=== PATIENT | female | born 1950 | race Hispanic/Latino ===

== ENCOUNTER 2017-07-20 06:05 | Inpatient (IN) | payer MEDICARE ==
[2017-07-13 09:06] VITALS: BMI 22.4
[2017-07-20] MEDS ORDERED: ceFAZolin IV 2 gm in Dextrose 2 GM/50 ML BAG IVPB ONE (07:34)
[2017-07-20] MEDS ORDERED: Bupivacaine-Epi 0.5%-1:200,000 PF Inj IJ ONE (07:39)
[2017-07-20] MEDS ORDERED: Propofol 10 mg/ml Inj (20 ML) ONE (08:05)
[2017-07-20] MEDS ORDERED: Midazolam 2 MG/2 ML VIAL ONE (08:05)
[2017-07-20] MEDS ORDERED: Rocuronium 10 mg/ml (5 ml) ONE (08:05)
[2017-07-20] MEDS ORDERED: Lidocaine Hydrochloride 5 ML INJ ONE (08:05)
[2017-07-20] MEDS ORDERED: Phenylephrine 10 mg/ml Inj ONE (10:14)
[2017-07-20] MEDS ORDERED: ePHEDrine 50 mg/ml Inj ONE (10:14)
[2017-07-20] MEDS ORDERED: Neostigmine Methylsulfate 3mg/3ml Syringe IV ONE (12:02)
[2017-07-20] MEDS ORDERED: Clindamycin 2% Vaginal Cream(40 gm) ONE (12:33)
[2017-07-20] MEDS ORDERED: Lactated Ringer's 1,000 ML IV SCH (13:15)
[2017-07-20] MEDS: HYDROmorphone 0.5 mg/0.5 ml ISec IVP PRN ×3 (13:20→14:06)
--- NOTE | 2017-07-20 13:38 | PCM.SURG1 ---
Surgeon's Initial Post Op Note - Surgeon's Notes Surgeon: Dalton Espinal MD Boiler Technician: Kristie PANIAGUA Type of Anesthesia: General Endo, Local Pre-Operative Diagnosis: Complete procedentia, complete uterine prolapse. Cystocele. Ractocele. Urinary incontinence. chronic pelvic pain Operative Findings: Stage IV uterine prolapse. Stage IV cystocele rectocele. normal bladder and ureters anatomy. extensive peritoneal adhesions Post-Operative Diagnosis: Complete procedentia, complete uterine prolapse. Cystocele. Ractocele. Urinary incontinence. chronic pelvic pain. Extensive adhesions peritoneal and bowel Operation Performed: robotic hysterectomy BSO. Sacrocolpopexy. lysis of adhesions. Cystosocpy. canulation of ureters stents ICYGREEN Specimen/Specimens Removed: uterus, cervix tubges and ovaries Estimated Blood Loss: EBL {In ML}: 20 Drains Used: No Drains Post-Op Condition: Good Date of Surgery/Procedure: 07/20/17 Time of Surgery/Procedure: 13:39
[2017-07-20] MEDS ORDERED: Morphine 4 MG/ML VIAL IVP PRN (13:39)
[2017-07-20] MEDS ORDERED: Sodium Chloride 0.9% 1,000 ML IV SCH (13:45)
[2017-07-20] MEDS ORDERED: ceFAZolin IV 2 gm in Dextrose 2 GM/50 ML BAG IVPB SCH (14:45)
[2017-07-20 16:44] VITALS: O2SAT 98
[2017-07-21 00:18] VITALS: BP 131/77
[2017-07-21] MEDS: ceFAZolin IV 2 gm in Dextrose 2 GM/50 ML BAG IVPB SCH ×2 (02:03→10:56)
[2017-07-21] MEDS: Oxycodone/Acetaminophen 5/325 mg Tab PO PRN ×2 (06:25→18:46)
[2017-07-21 08:01] LABS: HEMOGLOBIN 12.8 g/dL (11.0-16.0); MEAN CELL VOLUME 84.9 fL (81.0-99.0); MEAN CORPUSCULAR HEMOGLOBIN 29.2 pg (27.0-31.0); MEAN CORPUSCULAR HGB CONC 34.4 g/dL (33.0-37.0); MEAN PLATELET VOLUME 9.3 fL (7.2-11.7); RBC 4.39 Mil/uL (3.80-5.20); RED CELL DISTRIBUTION WIDTH 13.9 % (11.5-14.5); WHITE BLOOD COUNT 9.1 K/uL (4.8-10.8)
--- NOTE | 2017-07-21 17:49 | CP.PCM.PN ---
Subjective - Date & Time of Evaluation Date of Evaluation: 07/21/17 Time of Evaluation: 17:45 - Subjective Subjective: PGY1- Progress Note Patient seen and examined at bedside. Patient complains of mild abdominal pain which she rates 3/10. Patient has no other complaints. Patient is tolerating diet with no nausea or vomiting. Patient is urinating okay. Patient denies chest pain, shortness of breath, diarrhea, constipation. Objective - Vital Signs/Intake and Output Vital Signs (last 24 hours): Temp Pulse Resp BP Pulse Ox 98.3 F 70 20 131/77 98 07/21/17 00:00 07/21/17 00:00 07/21/17 00:00 07/21/17 00:00 07/21/17 00:00 Intake and Output: 07/21/17 07/21/17 06:59 18:59 Intake Total 1200 Output Total 1200 Balance 0 - Medications Medications: Current Medications Lactated Ringer's (Lactated Ringer's) 1,000 mls @ 150 mls/hr IV .Q6H40M VICTORINA Sodium Chloride (Sodium Chloride 0.9%) 1,000 mls @ 100 mls/hr IV .Q10H VICTORINA Last Admin: 07/21/17 00:15 Dose: 100 mls/hr Morphine Sulfate (Morphine) 4 mg IVP Q4H PRN PRN Reason: Pain, severe (8-10) Ondansetron HCl (Zofran Inj) 4 mg IVP ONCE PRN PRN Reason: Nausea/Vomiting Last Admin: 07/20/17 18:34 Dose: 4 mg Oxycodone/Acetaminophen (Percocet 5/325 Mg Tab) 1 tab PO Q4 PRN PRN Reason: Pain, moderate (4-7) Stop: 07/23/17 13:40 Last Admin: 07/21/17 06:25 Dose: 1 tab - Labs Labs: 07/21/17 07:54 - Constitutional Appears: Non-toxic, No Acute Distress - Head Exam Head Exam: ATRAUMATIC, NORMAL INSPECTION, NORMOCEPHALIC - Eye Exam Eye Exam: EOMI, Normal appearance - Respiratory Exam Respiratory Exam: Clear to Ausculation Bilateral, NORMAL BREATHING PATTERN. absent: Rales, Rhonchi, Wheezes, Respiratory Distress, Stridor - Cardiovascular Exam Cardiovascular Exam: REGULAR RHYTHM, RRR, +S1, +S2 - GI/Abdominal Exam GI & Abdominal Exam: Soft, Normal Bowel Sounds. absent: Tenderness - Extremities Exam Extremities Exam: Normal Inspection. absent: Pedal Edema - Neurological Exam Neurological Exam: Alert, Awake, Oriented x3 - Psychiatric Exam Psychiatric exam: Normal Affect, Normal Mood - Skin Skin Exam: Intact, Normal Color, Warm Assessment and Plan - Assessment and Plan (Free Text) Assessment: A&P: Robotic hysterectomy BSO, Sacrocolpopexy, lysis of adhesions, Cystosocopy , canulation of ureter stents POD#1 1. stable, afebrile 2. patient to be discharged home 3. patient to follow up with Dr. Espinal in 2 weeks Luisa Russell, PGY1
[2017-07-21 17:51] VITALS: PULSE 86; RESP 18; TEMP 97.6
--- NOTE | 2017-07-25 17:49 | PCM.OP ---
Operative Report - Operative Report Date of Surgery/Procedure: 07/20/17 Time of Surgery/Procedure: 13:40 Surgeon: Dalton Espinal MD Sound Controller: Kristie PANIAGUA Anesthesia/Sedation: General with ET tube Pre-Operative Diagnosis: Complete uterine procidentia. Stage IV cystocele. Stage IV rectocele. Urinary incontinence. Chronic pelvic pain Post-Operative Diagnosis: Complete uterine procidentia. Stage IV cystocele. Stage IV rectocele. Urinary incontinence. Chronic pelvic pain Indication for Surgery: Worsening pain due to complete procidentia of the uterus as well as urinary dysfunction Operative Findings: Complete uterine procidentia, stage IV cystocele and rectocele, normal bladder anatomy within normal limits as per cystoscopy. Procedure/Operation Description: Total robotic hysterectomy bilateral salpingo- oophorectomy. Sacrocolpopexy. Lysis of adhesions. Stenting of ureters utilizing icy green contrast. Diagnostic cystoscopy. DESCRIPTION OF OPERATION : TRH & SCP. This is a 67 years old female with symptomatic complete uterine prolapse, enlarged fibroid uterus, cystocele, rectocele and urinary incontinence. The patient completed an extensive preoperative workup, which included an ultrasound, as well as a Pap smear, chemistry and hematology studies. The patient reported these symptoms and problems as debilitating, and adversely affecting her quality of life. The patient reported this complete procidentia is limiting her daily activities, as the uterus is completely prolapsed which prevents her from sitting down or carrying any physical activities without extreme discomfort. Following a period of failed conservative management, and patient decision was made to proceed with a more invasive approach to address the above noted problems. A decision was finally made to proceed with a total robotic assisted hysterectomy, bilateral salpingoophorectomy, and vaginal vault suspension in the form of sacrocolpopexy with polypropylene mesh. A detailed description of this robotic procedure was given to the patient, all risks and benefits of the surgical modality was reviewed, printed material was also given to the patient regarding robotic surgery. After a detailed discussion about the pros and cons of using polypropylene mesh graft for the sacrocolpopexy, all benefits and risks were reviewed including but not limited to the risk of infection, mesh erosion / extrusion, chronic pain and dyspareunia. In addition, the FDA warning about mesh utilization for prolapse and incontinence surgery was reviewed in details, and specific written consent was obtained. The patient elected to proceed with a sacrocolpopexy today fully understanding the risk associated with utilizing mesh material. Other alternatives were also offered to the patient, she elected to proceed with a mesh sacrocolpopexy despite associated risks. The patient fully understood all the risks and benefits and elected to proceed with this proposed procedure. After proper consent was obtained from the patient was taken to the operating room, proper patient identification was completed. She was placed in dorsal lithotomy position; general anesthesia was induced without difficulty. Her legs were placed in adjustable Tramaine stirrups. Careful attention was placed hyperreflexion or hyper-rotation of the lower extremities at the hip or the knee joints. She was prepped and draped appropriately for robotic assisted hysterectomy and sacrocolpopexy. Elmore catheter was inserted under sterile conditions. A weighted speculum was placed in the vagina, anterior lip of cervix was grasped with a tenaculum, and a V-care uterine manipulator was inserted through the cervix and secured. The weighted speculum and tenaculum were removed from the patient's vagina and attention was turned to the patient's abdomen. Local anesthetic solutions of 0.25% Marcaine with epinephrine were utilized to infiltrate the skin prior to all abdominal skin incisions. A total of 15 mL of 0.25% Marcaine was utilized throughout the procedure. Diagnostic cystoscopy was completed prior to start of the procedure as well as cannulation of both ureters with stents for the administration of IC green contrast material. 30 cystoscope was inserted through the urethra 5 Sami ureter stents were inserted into each ureter at approximately 15 cm meg. Approximately 5 mL of diluted ICG green solution was infused into each ureter. Both stents were removed and Elmore catheter was reinserted. While tenting the abdominal wall up, a Veress needle was inserted at a 45 degree angle. With CO2 insufflation, there was a drop in intraperitoneal pressure confirming correct placement. Insufflation was carried out to approximately 3 liters. A blunt robotic trocar and sleeve was introduced through the camera port in the midline, approximately 3 cm above the umbilicus. Then, using a 30- degree lens robotic scope, initial survey of the patient's abdomen revealed a bulky fibroid uterus and normal-appearing ovaries and fallopian tubes. Under direct visualization, 3 additional robotic ports were utilized for this procedure. The first one, approximately 5 cm superior to the superior iliac crest on the RIGHT, a second port was approximately 5 cm superior to the superior iliac crest on the LEFT, and a third one was approximately 8 cm RIGHT lateral of the camera port in the midline. All robotic ports were approximately 8 mm in length. An assistant professor of psychology port was inserted approximately 8 cm LEFT lateral of the camera port, and the versastep trocar and sleeve were introduced in the recommended fashion. A Veress and sheath were first introduced through a 1 cm incision, the Veress was removed and a trocar was introduced through the sheath and secured. Again, excellent visualization was noted confirming intraperitoneal placement. The placement of the trocars was all accomplished under careful and meticulous placement under direct visualization. Following the placement of all trocars, the da Janie robotic system was docked in a parallel side docking method without difficulty after the patient was placed in moderate Trendelenburg position and small bowel had been swept away out of the pelvis. The ureter was positively identified. The following instruments were utilized for this procedure: the bipolar cautery device, a monopolar drea and finally a ProGrasp. Prior to the start of the hysterectomy, both ureters were visualized along the full course, peristalsis bilaterally. On the patient's right side, the IP and the round ligaments were identified cauterized and transected, the broad ligament was divided all the way down to the utero cervical junction bladder flap was then created by transecting the visceroperitoneum over the bladder reflection. In a similar fashion, the left round ligament, IP ligament and broad ligament were cauterized sealed and transected, taken down to the level of the cervical uterine junction. Uterine vessels on both sides were sealed and transected. The Uterosacral ligaments were sealed and transected. The monopolar drea and PK were utilized to complete the colpotomy incision around the care vaginal ring. Excellent hemostasis was noted. The uterus, cervix, ovaries and fallopian tubes were delivered transvaginally through the colpotomy incision and sent to pathology for permanent analysis. The colpotomy incision was closed with 2-0 v LOC in a continuous fashion with excellent hemostasis. Attention was then turned to the presacral space. The peritoneum overlying it was tented upward and incised sagittally all the way down to the posterior vaginal wall keeping the right ureter in view at all times. A longitudinal ligament of the sacrum was clearly visualized following this dissection and ready to accept the anchoring of the Y. mesh. The posterior vaginal wall was dissected free from the peritoneum using monopolar drea. Two obturators had been placed, one in the vagina, one in the rectum, to assist with this dissection. The dissection was carried out to 5 cm from the vaginal apex / vaginal cuff. A similar dissection was carried out anteriorly with the same technique dissecting the bladder away from the vaginal cuff approximately 5 cm with clearance. Excellent hemostasis was noted. A polypropylene Y mesh then placed into the peritoneal cavity. With the aid of an torch operator in the vagina, and retracting the vaginal apex upward, the posterior short-arm of the Y mesh was anchored with 6 interrupted CV-2 Benoit-Rubio sutures to the posterior vaginal wall. In a similar fashion while retracting the vaginal apex down sosa, the anterior short-arm of the Y. mesh was anchored to the anterior vaginal wall with 7 interrupted sutures utilizing CV 2 Benoit-Rubio material. While applying upward tension to lift the vagina into the pelvic cavity to approximate the full length of the vagina in a tension-free fashion and approximation of the length of the long arm of the Y. mesh was marked to be entered onto the longitudinal ligament of the sacrum. 1 interrupted CV-2 Benoit-Rubio suture as well as 2 interrupted 2-0 Prolene sutures were used to anchor the Y. mesh to the longitudinal ligament. The peritoneum was then closed with running 2-0 Monocryl suture. The pelvis was and freed of all clots and debris. Excellent hemostasis was noted. The pelvis and abdomen were irrigated copiously and cleared of all clots and debris. FloSeal as well as Interceed was applied over the incision sites. Excellent hemostasis was once again noted. All robotic and laparoscopic instruments removed under direct visualization. The robotic arms were undocked, and a da Janie robotic system was wheeled away from the patient's bedside. Both assistant professor of psychology and camera ports were closed at the fascial layer utilizing a 0 Vicryl suture material in interrupted fashion. Pneumoperitoneum was reduced and all skin incisions were closed utilizing 4-0 Monocryl in a subcutaneous fashion. Dermabond was applied to all incisions. At the conclusion of this procedure, a diagnostic cystoscopy was completed. The Elmore catheter was removed; the bladder was distended with approximately 350 cc of normal saline. A 17 Sami 30 cystoscope was introduced through the urethra and a survey of the bladder anatomy was completed. The trigone, and the dome of the bladder appeared normal, both ureteral orifices appeared normal and were efluxing urine freely. The urethra appeared normal. A Elmore catheter was reinserted. Vaginal packing was inserted to be removed the next morning. Patient emerged from general anesthesia without difficulty, and was taken to recovery room in stable condition. Prior to incision the patient received antibiotics, prior to closure sponge lap and needle counts were correct x2. Estimated Blood Loss: 20 Blood Replaced: None Sponge/Instrument Count: Count correct 2 Drains: None Complications: None Specimen: Uterus cervix fallopian tubes and ovaries bilaterally Discharge & Condition: Patient discharged home postoperative day #1 in stable condition
== END 2017-07-21 18:55 | disposition home or self-care (01) | DRG 743 ==
LOC: C.SDS 06:05 → C.4M 13:39
PROVIDERS: ADMIT Obstetrics & Gynecology; ATTEND Obstetrics & Gynecology
PROC: 0DNW4ZZ Release Peritoneum, Percutaneous Endoscopic Approach (ICD-10-PCS; 2017-07-20)
PROC: 0UT2FZZ Resection of Bilateral Ovaries, Via Natural or Artificial Opening With Percutaneous Endoscopic Assistance (ICD-10-PCS; 2017-07-20)
PROC: 0UT7FZZ Resection of Bilateral Fallopian Tubes, Via Natural or Artificial Opening With Percutaneous Endoscopic Assistance (ICD-10-PCS; 2017-07-20)
PROC: 0USG8ZZ Reposition Vagina, Via Natural or Artificial Opening Endoscopic (ICD-10-PCS; 2017-07-20)
PROC: 8E0W4CZ Robotic Assisted Procedure of Trunk Region, Percutaneous Endoscopic Approach (ICD-10-PCS; 2017-07-20)
PROC: 8E0W4CZ Robotic Assisted Procedure of Trunk Region, Percutaneous Endoscopic Approach (ICD-10-PCS; 2017-07-20)
PROC: 0UT9FZZ Resection of Uterus, Via Natural or Artificial Opening With Percutaneous Endoscopic Assistance (ICD-10-PCS; principal; 2017-07-20 07:45)
DX: D25.0 Submucous leiomyoma of uterus (principal); D25.1 Intramural leiomyoma of uterus; G89.29 Other chronic pain; K66.0 Peritoneal adhesions (postprocedural) (postinfection); R33.9 Retention of urine, unspecified; N81.4 Uterovaginal prolapse, unspecified; Z68.22 Body mass index [BMI] 22.0-22.9, adult; N81.3 Complete uterovaginal prolapse; R32 Unspecified urinary incontinence